=== PATIENT | male | born 1970 | race Caucasian/White ===

== ENCOUNTER 2016-05-01 20:44 | Emergency (ER) | payer BC ==
[2016-05-01] MEDS ORDERED: ERYTHROMYCIN BASE 3.5 APPL TUBE LEFTEYE ONE (22:57)
--- NOTE | 2016-05-01 22:59 | ERNOTE ---
ENT HPI Date of Service: 05/01/16 Presenting Symptoms: other - she feels as if he has a foreign body in his left eye. This happened today Time Seen by Provider: 05/01/16 22:44 - Immun/Allergies/Home Medications Immunizations: IMMUNIZATION HX Immunizations Up to Date Yes History of Influenza Vaccine Yes Hx Pneumococcal Vaccination No Allergies/Adverse Reactions: Allergies Allergy/AdvReac Type Severity Reaction Status Date / Time No Known Allergies Allergy Unverified 05/01/16 20:49 Home Medications: HOME MEDICATIONS NK [No Home Medication] 05/01/16 [Last Taken Unknown] - History of Present Illness Narrative: pt works around metal shavings and felt as if he had a piece fly into his left eye, despite wearing protective goggles. He feels as if there is something in his left eye. Review of Systems - Review of Systems Constitutional: Present: no symptoms reported EYE: Present: see HPI ENT: Present: no symptoms reported Respiratory: Present: no symptoms reported Cardiology: Present: no symptoms reported Skin: Present: no symptoms reported Neurological: Present: no symptoms reported - Patient's Past Medical History Patient History - Medical: Diabetes Type 2 Patient History - Cardiac/Respiratory: Bronchitis, Hypertension Patient History - Cancer: No Hx of Cancer Patient History - Surgical Procedures: No surgical history Patient History - Other: None - Social History Living Situations: home Psych History: No pertinent hx Smoking Status: Never smoker Alcohol Use: none Drug Use: none - Immunizations Immunizations Up to Date: Yes Hx Pneumococcal Vaccination: No History of Influenza Vaccine: Yes Physical Exam - Physical Exam General Appearance: Present: wd/wn, alert, no apparent distress Eye Exam: Conjunctivae pale: left - there is conjunctival injection. There is a rust ring noted at 3 O' clock position on the left eye. Ears, Nose, Throat: Present: normal ENT inspection Neck: Present: normal inspection, nontender, supple Respiratory: Present: no respiratory distress Cardiovascular/Chest: Present: regular rate, rhythm ED Progress - Vital Signs Patient's Vital Signs:: I have reviewed the patient's vital signs. Vital Signs: Vital Signs 05/01/16 20:50 Temperature 35.6 C L Pulse Rate 91 Respiratory 16 Rate Blood Pressure 139/82 O2 Sat by Pulse 98 Oximetry - Progress/Reassessment Chief Complaint: Eye Injury/Trauma Plan - Plan Plan: Examiner placed 2 drops of tetracaine into the left eye for patient comfort, using a fluorescein dye and with the lamp the eye was examined. 8 punctate rust ring was noted at 3 o'clock position in the left eye. Attempt was made to wipe the rust ring however I was not successful. This patient will be urged to follow-up with ophthalmology tomorrow. Departure Clinical Impression: Corneal rust ring of left eye - Departure Disposition: Home self-care Condition: Good Additional Instructions: You Have a rust ring in your left eye please go see Dr. Bills at [facility] tomorrow. They will contact you with an appointment. Keep your eye patch on and have someone drive you there for safety. Referrals: Sarah Naik MD [Primary Care Provider] -
[2016-05-01] MEDS ORDERED: ERYTHROMYCIN BASE 3.5 APPL TUBE ONE (23:09)
--- OUTSIDE RECORDS SUMMARY | 2016-05-01 23:16 | XMS REPORT | Continuity of Care Document ---
:1970 Author Organization [facility] ([facility]) Address [place] [place] [address] Phone [phone] Care Team Providers Name Role Phone Unavailable Primary Care Provider Unavailable Source Comments This disclosure is being made pursuant to the Care Everywhere program, applicable federal and state laws, and may not contain all informaitonavailable regarding this patient.[facility] ([facility]) Active Allergies and Adverse Reactions Not on File Current Medications Not on file Active Problems Not on file Most Recent Encounters Date Type Specialty Providers Description 05/01/2016 Telephone Ophthalmology - Dee Bills, Chief Comp: Specialty MD Consultation Social History Tobacco Use Types Packs/Day Years Used Date Never Assessed Plan of Care Health Maintenance Due Date Last Done Comments Hepatitis B Vaccine (1 of 3 - Primary Series) 1970 Tdap Vaccine 02/29/1980 Lipid Disorder Screening 1987 MMR Vaccine 1987 Td Vaccine 1987 Influenza Vaccine: Seasonal (#1) 09/18/2015 Results from Last 3 Months Not on file
[2016-05-01 23:19] VITALS: BP 138/79
== END 2016-05-02 00:34 | disposition home or self-care (01) ==
LOC: ER 20:44
DX: T15.00XA Foreign body in cornea, unspecified eye, initial encounter (principal); X58.XXXA Exposure to other specified factors, initial encounter; Y93.H3 Activity, building and construction; Y92.9 Unspecified place or not applicable; Y99.9 Unspecified external cause status